=== PATIENT | female | born 1965 | race Hispanic/Latino ===

== ENCOUNTER → 2018-11-30 14:07 | Outpatient (CLI) | payer OTHER, SELFPAY ==
--- NOTE | 2018-11-30 | DI.ECHO.S_ITS ---
[facility] +---------+ : : [address] [place] : : : : [id number] : : : : Phone: [phone]+ Echocardiogram Report + + :Name: KASSY AVILEZ Study Date: 11/30/2018 Height: 64 in : :[facility] Exam Location: [facility] Weight: 154 lb : : Gender: Female BSA: 1.8 m2 : :: 1965 Age: 53 yrs BP: 115/80 mmHg: :Reason For Study: Palpitations : : Performed By: Jennifer Page : :Referring: [email or web address] : + + Interpretation Summary The left ventricle is normal in size, wall thickness, and systolic function without any focal wall motion abnormalities with the ejection fraction visually estimated to be 55-60%. Diastolic parameters suggest probable normal left ventricular diastolic function and normal filling pressures. The right ventricle is normal in size and function. Pulmonary artery pressures cannot be estimated because of the lack of a measurable TR jet velocity but the IVC suggests a CVP of around 3 mmHg. Both atria are normal in size. There is no significant valvular heart disease. Procedure: A two-dimensional transthoracic echocardiogram with color flow and Doppler was performed. The study quality was technically adequate. There is no prior echocardiogram noted for this patient. The patient was in normal sinus rhythm during the exam. The heart rate ranged between 57-65 bpm during the study. Left Ventricle: The left ventricle is normal in size, wall thickness, and systolic function without any focal wall motion abnormalities. The ejection fraction is estimated to be 55-60%. Diastolic parameters suggest probable normal left ventricular diastolic function and normal filling pressures. Right Ventricle: The right ventricle is normal in size and function. Atria: Both atria are normal in size. The interatrial septum is intact with no evidence for an atrial septal defect. Mitral Valve: There is mild mitral annular calcification. The mitral valve leaflets appear normal. There is no evidence of stenosis, fluttering, or prolapse. There is trace mitral regurgitation. Aortic Valve: The aortic valve is trileaflet. The aortic valve opens well. No aortic regurgitation is present. Tricuspid Valve: The tricuspid valve is normal in structure and function. There is a trace or physiologic amount of tricuspid regurgitation. Pulmonary artery pressures cannot be estimated because of the lack of a measurable TR jet velocity but the IVC suggests a CVP of around 3 mmHg. Pulmonic Valve: The pulmonic valve is not well visualized. There is trace pulmonic regurgitation. There is no significant valvular heart disease. Great Vessels: The aortic root is normal size. The dimensions of the ascending aorta are normal. The aortic arch is normal in size. The pulmonary artery is normal size. The IVC is of normal diameter and collapses greater than 50% with a sniff. This suggests a low right atrial pressure of 3 mm Hg. Pericardium/ Pleura There is no pericardial effusion. There is no pleural effusion. MMode/2D Measurements & Calculations LVIDd: 4.4 cm Ao root diam: 2.9 cm LVIDs: 3.0 cm asc Aorta Diam: 2.6 cm FS: 31.0 % Ao Arch Diam (Prox Trans): 2.7 cm EPSS: 0.20 cm IVSd: 0.62 cm LVPWd: 0.72 cm LV barreto. diameter/BSA (cm/m^2): 2.5 LV sys. diameter/BSA (cm/m^2): 1.7 LA A2 area: 20.5 cm2 RA long axis: 4.7 cm LA A4 area: 16.9 cm2 RA area: 12.7 cm2 LA length (vol): 5.0 cm RA vol: 29.1 ml LA vol: 58.8 ml RA : 16.6 ml/m2 LA vol index: 33.6 ml/m2 IVC diam: 1.8 cm RVD1 (basal): 3.2 cm TAPSE: 2.2 cm Doppler Measurements & Calculations Ao V2 max: 122.3 cm/sec LVOT Max Jace: 70.9 cm/sec Ao V2 mean: 92.1 cm/sec LV V1 max P.0 mmHg Ao max P.0 mmHg LV V1 VTI: 15.4 cm Ao mean P.6 mmHg sev ratio: 0.59 Ao V2 VTI: 26.0 cm MV E max jace: 50.7 cm/sec PA V2 max: 67.2 cm/sec MV A max jace: 51.4 cm/sec PA V2 mean: 52.0 cm/sec MV E/A: 0.99 PA mean P.1 mmHg Med Peak E' Jace: 4.5 cm/sec PA Accel Time: 0.09 sec E/E' med: 11.2 Lat Peak E' Jace: 10.0 cm/sec E/E' lat: 5.1 E/e' average: 8.1 MV dec time: 0.17 sec MV P1/2t: 52.2 msec MV P1/2t max jace: 50.9 cm/sec MVA(P12t): 4.2 cm2 Reading Physician:NIC
== END ==
PROVIDERS: Visit Provider Legal Medicine
DX: R00.2 Palpitations (principal)
CPT/HCPCS: 93306